=== PATIENT | female | born 1930 | race Caucasian/White ===

== ENCOUNTER 2018-11-06 15:59 | Inpatient (IN) | payer MEDICARE, BC ==
[~2018-11-06] VITALS: Ht 165.1 cm; Wt 44.5 kg
--- NOTE | 2018-11-06 16:17 | NUR ---
PT JANESSA AVILA [facility], SENT BY PMD FOR WEAKNESS AND N/V, PT IS AAOX3, NOT IN RESPIRATORY DISTRESS, HOOKED TO MONITOR, VS STABLE, KEPT RESTED AND COMFORTABLE, WILL CONTINUE TO MONITOR. AWAITING ER MD FOR EVAL.
--- NOTE | 2018-11-06 16:30 | NUR ---
IV LINE ESTABLISHED, LABS DRAWNED AND SENT TO LAB.
--- NOTE | 2018-11-06 16:45 | NUR ---
SEEN AND EXAMINED BY DR. RODRIGUEZ.
[2018-11-06] MEDS ORDERED: BISA10SU61 RC (16:46)
[2018-11-06] MEDS ORDERED: MAGN400O6 GT (16:46)
[2018-11-06] MEDS ORDERED: ASPI-605 PO (16:46)
[2018-11-06] MEDS ORDERED: ATOR20TA PO (16:46)
[2018-11-06] MEDS ORDERED: ALEN70TA6 PO (16:46)
[2018-11-06] MEDS ORDERED: MELA1TAB23 PO (16:46)
[2018-11-06] MEDS ORDERED: TYL2T PO (16:46)
[2018-11-06] MEDS ORDERED: POTA20TA83 PO (16:46)
[2018-11-06] MEDS ORDERED: DIPH-530 PO (16:46)
[2018-11-06] MEDS ORDERED: METO25TA6 PO (16:46)
[2018-11-06] MEDS ORDERED: IPRA3AMP23 IH (16:46)
[2018-11-06] MEDS ORDERED: NA P133E RC (16:46)
[2018-11-06] MEDS ORDERED: VANC125C11 PO (16:46)
[2018-11-06] MEDS ORDERED: RIVA10TA PO (16:46)
[2018-11-06 18:04] LABS: BASOPHILS % (AUTO) 0.2 % (0.0-2.0); EOSINOPHILS % (AUTO) 0.5 % (0.0-6.0); HEMATOCRIT 39 % (33-45); LYMPHOCYTES # (AUTO) 1.2 /CMM (0.8-4.8); LYMPHOCYTES % (AUTO) 15.1 % (20.0-44.0); MEAN CORPUSCULAR HGB CONC 33 g/dl (31.0-36.0); MEAN CORPUSCULAR VOLUME 94 fL (82-100); MONOCYTES # (AUTO) 0.4 /CMM (0.1-1.30); NEUTROPHILS # (AUTO) 6.4 /CMM (1.8-8.9); NEUTROPHILS % (AUTO) 79.2 % (43.0-81.0); PLATELET COUNT (AUTO) 253 /CMM (150-450); RED BLOOD CELL COUNT(AUTO) 4.15 MIL/uL (4.0-5.2); WHITE BLOOD COUNT (AUTO) 8.1 K/uL (4.3-11.0)
--- NOTE | 2018-11-06 18:13 | NUR ---
PT IS WHEELED TO CT SCAN VIA [facility].
[2018-11-06 18:17] LABS: CALCIUM, SERUM 8.4 mg/dL (8.5-10.1); CARBON DIOXIDE 15 mmol/L (21-32); CHLORIDE 104 mmol/L (98-107); CREATININE 0.6 mg/dL (0.6-1.3); GLUCOSE 62 mg/dL (74-106); POTASSIUM 3.1 mmol/L (3.5-5.1); SODIUM SERUM 140 mmol/L (136-145); UREA NITROGEN, BLOOD 7 mg/dL (7-18)
[2018-11-06 18:29] LABS: ALANINE AMINOTRANSFERASE 39 U/L (12-78); ALBUMIN 2.8 g/dL (3.4-5.0); ALKALINE PHOSPHATASE 57 U/L (46-116); ASPARTATE AMINOTRANSFERASE 48 U/L (15-37); BILIRUBIN,DIRECT 0.1 mg/dL (0.0-0.2); BILIRUBIN,TOTAL 0.9 mg/dL (0.2-1.0); LIPASE 213 U/L (73-393); TOTAL PROTEIN, SERUM 6.7 g/dL (6.4-8.2)
--- NOTE | 2018-11-06 18:47 | NUR ---
URINE SPECIMEN COLLECTED AND SENT TO LAB.
--- NOTE | 2018-11-06 19:08 | NUR ---
CALLED RT FOR ABG
[2018-11-06 19:09] LABS: APPEARANCE,URINE Clear (CLEAR); BILIRUBIN,URINE SMALL (NEGATIVE); BLOOD, URINE Moderate Ery/uL (NEGATIVE); COLOR,URINE Yellow (YELLOW); KETONES,URINE >=160 (NEGATIVE); LEUKOCYTE ESTERASE ,URINE Moderate (NEGATIVE); NITRITE, URINE Negative (NEGATIVE); PROTEIN,URINE 100 mg/dl (NEGATIVE); UGLUCOSE Negative (NEGATIVE); UROBILINOGEN,URINE 0.2 EU/dL (0.2)
[2018-11-06 19:22] LABS: BACTERIA,URINE 2+ /HPF (None Seen); SQUAMOUS EPITHELIAL CELL,UR Few /HPF (None Seen)
--- NOTE | 2018-11-06 19:27 | NUR ---
REPORT GIVEN TO PERRY KITCHEN FOR PAT.
[2018-11-06 19:35] LABS: ABG BASE EXCESS -10.1 mmol/L; ABG OXYGEN SATURATION 94.5 % (92.0-98.5); ABG PCO2 20.5 mmHg (35.0-45.0); ABG PO2 74.5 mmHg (75.0-100.0); AaDO2 50.7 mmHg; COHb 0.6 % (0.5-1.5); MetHb 0.6 % (0.0-1.5); O2Hb 93.4 % (94.0-97.0); SITE, ABG Right Radial; VENT MODE, BG ROOM AIR
[2018-11-06] MEDS ORDERED: PIPERACILLIN /TAZOBACTAM 3.375 G in IV D5W 50 ML IV ONE (20:00)
[2018-11-06] MEDS ORDERED: IV NS 0.9% 1,000 ML BAG IV ONE (20:00)
[2018-11-06] MEDS: POTASSIUM CL. PREMIX PERIPHER. 50 ML IV SCH ×3 (20:00→23:24)
[2018-11-06] MEDS ORDERED: POTASSIUM CL. PREMIX PERIPHER. 50 ML ONE (20:55)
--- NOTE | 2018-11-06 21:15 | NUR ---
REPORT GIVEN TO SERGO AMADOR FOR PAT
[2018-11-06 21:30] VITALS: BP 150/82
--- NOTE | 2018-11-06 21:30 | NUR ---
ADMISSION NOTES: RECEIVED REPORT FROM PATRICK AMADOR. PT BROUGHT TO THE UNIT VIA GURNEY. [facility] C/O N/V GENERALIZED WEAKNESS, BEING ADMITTED TO TELEMETRY FOR SBO. PT A/O X3, FORGETFUL AT TIMES. IV ACCESS ON LEFT AC G18 CURRENTLY WITH ONGOING KCL REPLACEMENT 1ST BAG, ORDER TO GIVE 3BAGS. ORIENTED PT TO UNIT POLICY, HOURLY ROUNDING , USE OF CALL LIGHT SYSTEM. INVENTORY OF BELONGING COMPLETED BY DAIRY BACTERIOLOGIST IMM[place]. SKIN ASSESSMENT PERFORMED. VS TAKEN AND RECORDED. BLE OFFLOADED. TELEMONITORING CURRENTLY AFIB HR 82. SAFETY PRECAUTIONS FOR FALL INITIATED, CALL LIGHT IN REACH, WILL CONTINUE MONITORING PT.
[2018-11-06 22:00] VITALS: BP 150/82
--- NOTE | 2018-11-06 22:00 | NUR ---
RN NOTES: PLACED ON ISOLATION + CDIFF FROM SNF. WILL COLLECT STOOL FOR CDIFF.
[2018-11-06] MEDS ORDERED: POTASSIUM CL. PREMIX PERIPHER. 100 ML ONE (22:06)
[2018-11-06] MEDS ORDERED: PIPERACILLIN /TAZOBACTAM 3.375 G VIAL IV ONE (22:06)
--- NOTE | 2018-11-06 22:27 | NUR ---
2nd bag: medication just received from er, potassium chloride iv replaxcement
--- NOTE | 2018-11-06 22:30 | NUR ---
RN NOTES: PER FOOD SERVICE HOTEL RUNNER, PT NOW AFLUTTER HR 80. MD CURRENTLY IN THE UNIT, RELAYED RHYTHM, NO NEW ORDERS RECEIVED, PT AWAKE, BEING INTERVIEWED BY MD AT BED SIDE, DENIES ANY PAIN OR DISCOMFORT,WILL CONTINUE MONITORING PT.
--- NOTE | 2018-11-06 22:35 | NUR ---
RN NOTES: MADE AWARE OF PT'S HOME MED LIST IN THE COMPUTER ALREADY, READY FOR REVIEW, INFORMED PT ON VANCOMYCIN FOR CDIFF IN SNF
[2018-11-06] MEDS ORDERED: Z GUARD REMEDY 2 OZ OINT TP PRN (23:00)
[2018-11-06] MEDS ORDERED: MAG HYDROX/AL HYDROX/SIMETH 30 ML UDC PO PRN (23:00)
[2018-11-06] MEDS ORDERED: MAGNESIUM HYDROXIDE 30 ML UDC PO PRN (23:00)
[2018-11-06] MEDS ORDERED: ACETAMINOPHEN 325 MG TABLET PO PRN (23:00)
[2018-11-06] MEDS ORDERED: ONDANSETRON HCL/PF 4 MG/2 ML VIAL IVP PRN (23:00)
[2018-11-06] MEDS ORDERED: ZOLPIDEM TARTRATE 5 MG TABLET PO PRN (23:00)
[2018-11-06] MEDS ORDERED: HYDROCODONE/APAP 5/325MG 1 EACH TABLET PO PRN (23:00)
[2018-11-06] MEDS: IV D5/0.45 NACL 1,000 ML IV PRN (23:17)
--- NOTE | 2018-11-06 23:24 | NUR ---
3rd bag kcl replacement: 2nd bag kcl just finished, will now adminsiter the 3rd and last bag for kcl replacement 50ml/hr.
--- NOTE | 2018-11-06 23:52 | NUR ---
rn notes; per geodetic surveyor technologist, pt now converted to sinus rhythm hr 66
[2018-11-07] MEDS ORDERED: ZOSYN IVPB 3.375 G in IV D5W 50ml IV ONE (01:00)
--- NOTE | 2018-11-07 02:17 | NUR ---
RN NOTES: CURRENTLY SINUS RHYTHM WITH PAC HR 69
--- NOTE | 2018-11-07 03:26 | NUR ---
RN NOTES: PER MD TO CHANGE DIET TO NPO X MEDS AND RESUME PO VANCOMYCIN FOR MANAGEMENT OF CDIFF
--- NOTE | 2018-11-07 03:29 | NUR ---
RN NOTES: T/O FROM MD RESUME VANCOMYCIN 125MG PO CAP Q6HRS FOR CDIFF MANAGEMENT. ORDER READ BACK AND CARRIED OUT.
--- NOTE | 2018-11-07 03:32 | NUR ---
RN NOTES: NOTIFIED MD NO VANCOMYCIN CAPSULE AVAILABLE, ONLY ORAL SUSPENSION OR IV, PER MD ORDER FOR VANCOMYCIN 125MG PO ORAL SUSPENSION Q6HRS RECEIVED T/O, FOR CDIFF MANAGEMENT. ORDER READ BACK, NOTED, CARRIED OUT.
[2018-11-07 04:00] VITALS: BP 130/76
--- NOTE | 2018-11-07 04:31 | NUR ---
RN NOTES: PER INFORMATION TECHNOLOGY ASSISTANT PT BACK O A FLUTTER HR 66, PT AWAKE, A/O X2 ON RA DENIES ANY CHEST PAIN, SOB OR DIZZINESS.
--- NOTE | 2018-11-07 05:28 | NUR ---
RN NOTES: PER ELECTRONIC INSTRUMENT TRADES WORKER, PT BACK ON AFIB HR 82
--- NOTE | 2018-11-07 06:16 | NUR ---
notes regarding vancomycin po: no available vancomycin po to [facility], contacted rn sup spoked to sandi informed about order for vancomycin oral suspension 125mg, per rn sup there's no vanco oral suspension in night locker, only inside the in house pharmacy, cattle dehorner made aware, will wait for pharmacy to open in order to give the vancomycin po, will endorse to day rn to please administer the medication once its available. inhouse pharmacy will open at 0700am.
--- NOTE | 2018-11-07 06:40 | NUR ---
RN NOTES: BROUGHT STOOL SPECIMEN TO LAB, ORDER STOOL FOR CDIFF AND CULTURE. SPOKED WITH DAISHA FROM LAB, PER DAISHA, STOOL NOT ENOUGH TO QUALIFY FOR CULTURE, MUST BEHALF THE CONTAINER, AND STOOL MUST BE LIQUID FOR CDIFF TO BE PROCESS.
--- NOTE | 2018-11-07 06:45 | NUR ---
RN CLOSING NOTES: PT REMAINS A/O X2, ON RA RESPIRATION EVEN AND UNLABORED. REMAINS AFIB HR 72. IV ACCESS REMAINS PATENT AND FLUSHING WELL, INFUSING WITH IVF ORDERED. REMAINS ON CDIFF ISOLATION, PPE UTILIZED. BLE OFFLOADED. NEEDS ATTENDED. VS REMAINS STABLE. SAFETY PRECAUTIONS FOR FALL REMAINS ENGAGED, CALL LIGHT IN REACH, WILL ENDORSE TO DAY RN FOR CONTINUITY OF CARE.
[2018-11-07 06:47] LABS: BASOPHILS % (AUTO) 0.3 % (0.0-2.0); EOSINOPHILS % (AUTO) 1.9 % (0.0-6.0); HEMATOCRIT 37 % (33-45); HEMOGLOBIN 12.1 g/dL (11.5-14.8); LYMPHOCYTES # (AUTO) 1.3 /CMM (0.8-4.8); LYMPHOCYTES % (AUTO) 20.1 % (20.0-44.0); MEAN CORPUSCULAR HGB CONC 33 g/dl (31.0-36.0); MEAN CORPUSCULAR VOLUME 93 fL (82-100); MONOCYTES # (AUTO) 0.7 /CMM (0.1-1.30); MONOCYTES % (AUTO) 11.2 % (2.0-12.0); NEUTROPHILS # (AUTO) 4.2 /CMM (1.8-8.9); NEUTROPHILS % (AUTO) 66.5 % (43.0-81.0); PLATELET COUNT (AUTO) 236 /CMM (150-450); RED BLOOD CELL COUNT(AUTO) 3.93 MIL/uL (4.0-5.2); WHITE BLOOD COUNT (AUTO) 6.4 K/uL (4.3-11.0)
[2018-11-07 07:06] LABS: CALCIUM, SERUM 7.7 mg/dL (8.5-10.1); CARBON DIOXIDE 15 mmol/L (21-32); CHLORIDE 106 mmol/L (98-107); CREATININE 0.6 mg/dL (0.6-1.3); GLUCOSE 113 mg/dL (74-106); MAGNESIUM 1.4 mg/dL (1.8-2.4); PHOSPHORUS 2.1 mg/dL (2.5-4.9); POTASSIUM 3.2 mmol/L (3.5-5.1); SODIUM SERUM 139 mmol/L (136-145); UREA NITROGEN, BLOOD 5 mg/dL (7-18)
--- NOTE | 2018-11-07 07:30 | NUR ---
CIGAR WRAPPER TENDER AUTOMATIC NOTES PT IN BED, AWAKE, ALERT AND ORIENTED, NO COMPLAINT OF PAIN OR ANY DISCOMFORT, RESPIRATIONS NORMAL, PLAN OF CARE DISCUSSED WITH PT, VERBALIZED UNDERSTANDING, CALL LIGHT WITHIN REACH, IV FLUIDS INFUSING WELL, KEPT WARM AND COMFORTABLE.
[2018-11-07 08:00] VITALS: BP 133/53
[2018-11-07] MEDS: PANTOPRAZOLE 40 MG TABLET.DR PO SCH (08:02)
[2018-11-07] MEDS: PIPERACILLIN /TAZOBACTAM 3.375 G in IV D5W 100 ML IV SCH ×3 (09:06→23:28)
[2018-11-07] MEDS: POTASSIUM CHLORIDE 20 MEQ TAB.PRT.SR PO SCH ×2 (11:01→12:24)
[2018-11-07] MEDS: VANCOMYCIN HCL 125 MG/2.5 ML ORAL.SUSP PO SCH ×3 (11:01→23:17)
[2018-11-07] MEDS: Magnesium 1GM/D5W 100ML PREMIX 100 ML IV SCH ×4 (11:03→14:42)
[2018-11-07 12:00] VITALS: BP 128/60
[2018-11-07] MEDS ORDERED: K PHOS NEUTRAL 250 MG TABLET PO ONE (12:00)
--- NOTE | 2018-11-07 12:00 | NUR ---
HOP FARMER NOTES PER GILDARDO WAHL TO START ON CLEAR LIQUID DIET, ADVANCE DIET TOLERATED, PT INFORMED.
--- NOTE | 2018-11-07 13:40 | NUR ---
ENGINEER CONDUCTOR NOTES PT IN BED, AWAKE, ALERT, NO COMPLAINT OF PAIN, NOT IN DISTRESS, TOLERATING CLEAR LIQUID DIET, SEEN AND EXAMINED BY LEIDY REAL ESTATE REP, PLAN OF CARE DISCUSSED WITH PT, VERBALIZED UNDERSTANDING.
[2018-11-07 16:00] VITALS: BP 143/63
--- NOTE | 2018-11-07 19:00 | NUR ---
RN MS NOTES PT IN BED, AWAKE, ALERT AND ORIENTED, DENIES PAIN, NOT IN DISTRESS, CALL LIGHT WITHIN REACH, IV FLUIDS INFUSING WELL, TOLERATING CURRENT DIET WELL, PM MEDS GIVEN ORDERED, ALL NEEDS ATTENDED.
--- NOTE | 2018-11-07 19:58 | NUR ---
RN NOTES RECEIVED PATIENT AWAKE , RESTING COMFORTABLY, SAFETY MEASURES IN PLACE, ASPIRATION PRECAUTION EMPHASIZE, REPOSITIONED FOR COMFORT, NO APPARENT SIGNS OF ACUTE DISTRESS NOTED AT THIS TIME, CALL LIGHT WITHIN EASY REACH, ISOLATION PRECAUTION MAINTAINED, WILL MONITOR ACCORDINGLY.
[2018-11-07 20:25] VITALS: BP 137/71
[2018-11-08] MEDS: VANCOMYCIN HCL 125 MG/2.5 ML ORAL.SUSP PO SCH ×3 (05:57→17:45)
--- NOTE | 2018-11-08 07:25 | NUR ---
RN NOTES ALL NEEDS ATTENDED AND MET, KEPT CLEAN DRY AND COMFORTABLE, REPOSITIONED FOR COMFORT, DENIES ANY PAIN, ISOLATION PRECAUTION OBSERVED, SAFETY MEASURES IN PLACE, ASPIRATION PRECAUTION EMPHASIZE, ENDORSED TO AM NURSE FOR CONTINUITY OF CARE.
--- NOTE | 2018-11-08 07:30 | NUR ---
RN MS NOTES PT IN BED, AWAKE, ALERT AND ORIENTED, NO COMPLAINT OF PAIN OR ANY DISCOMFORT, RESPIRATIONS NORMAL, CALL LIGHT WITHIN REACH, KEPT COMFORTABLE IN BED, IV FLUIDS INFUSING WELL.
[2018-11-08 07:38] LABS: CALCIUM, SERUM 7.8 mg/dL (8.5-10.1); CARBON DIOXIDE 23 mmol/L (21-32); CHLORIDE 108 mmol/L (98-107); CREATININE 0.4 mg/dL (0.6-1.3); GLUCOSE 92 mg/dL (74-106); MAGNESIUM 2.1 mg/dL (1.8-2.4); POTASSIUM 3.1 mmol/L (3.5-5.1); SODIUM SERUM 140 mmol/L (136-145); UREA NITROGEN, BLOOD 1 mg/dL (7-18)
[2018-11-08 08:00] VITALS: BP 129/70
[2018-11-08] MEDS: IV D5/0.45 NACL 1,000 ML IV PRN (08:24)
[2018-11-08] MEDS: PIPERACILLIN /TAZOBACTAM 3.375 G in IV D5W 100 ML IV SCH ×2 (08:24→16:48)
[2018-11-08] MEDS: PANTOPRAZOLE 40 MG TABLET.DR PO SCH (08:24)
[2018-11-08] MEDS: POTASSIUM CHLORIDE 20 MEQ TAB.PRT.SR PO SCH ×2 (11:54→13:00)
[2018-11-08] MEDS ORDERED: POTASSIUM CHLORIDE 20 MEQ TAB.PRT.SR PO ONE (14:30)
[2018-11-08 16:00] VITALS: BP 117/64
--- NOTE | 2018-11-08 19:00 | NUR ---
RN MS NOTES PT IN BED, AWAKE, ALERT AND ORIENTED, NO COMPLAINT OF PAIN, NOT IN DISTRESS, IV FLUIDS INFUSING WELL, CALL LIGHT WITHIN REACH, TOLERATING CURRENT DIET, PM CARE PROVIDED, PM MEDS GIVEN, ALL NEEDS ATTENDED.
--- NOTE | 2018-11-08 19:52 | NUR ---
MS GEORGIE INITIAL NOTES PT SEEN IN BED SITTING STILL EATING HER DINNER , NO ASPIRATION NOTED. PT STATED IT'S GOOD , NOTICED SHE ALMOST FINISHED HER DINNER FOOD. NO SIGNS OF ANY DISTRESS OR ANY N/V NOTED. RE-ORIENTED WHERE SHE AT AND HOW TO USED THE CALL LIGHT SYSTEM. PT STATED "OK". KEPT HER WARM AND COMFORTABLE AT ALL TIMES. IVF STILL INFUSING. PLACE CALL LIGHT AT REACH. BED ALARM FOR PT. SAFETY. BED IN LOW AND LOCK IN POSITION WITH SIDE RAILS X2 UP. WILL CONTINUE MONITORING.
[2018-11-08 20:00] VITALS: BP 139/69
[2018-11-08] MEDS ORDERED: Z GUARD REMEDY 2 OZ OINT TP PRN (23:00)
[2018-11-09] MEDS: VANCOMYCIN HCL 125 MG/2.5 ML ORAL.SUSP PO SCH ×3 (00:08→11:32)
[2018-11-09] MEDS: PIPERACILLIN /TAZOBACTAM 3.375 G in IV D5W 100 ML IV SCH ×2 (00:40→08:11)
--- NOTE | 2018-11-09 00:41 | NUR ---
COVERING PRIMARY NURSE YOHANNES Zosyn IV administered, indication and possible effect.
--- NOTE | 2018-11-09 02:46 | NUR ---
ms convertible top installer notes pt resting comfortably in bed without any acute distress noted. breathing even and non-labored, due meds given and IVF still infusing. kept her warm and comfortable at all times. place call light at reach. will continue monitoring.
[2018-11-09] MEDS: PANTOPRAZOLE 40 MG TABLET.DR PO SCH (06:49)
[2018-11-09] MEDS: IV D5/0.45 NACL 1,000 ML IV PRN (06:50)
--- NOTE | 2018-11-09 07:12 | NUR ---
ms batch plant supervisor closing notes pt remains sleeping after sponge bath rendered as well skin tx. stable rigoberto the night . no signs of any distress noted. all due meds given and all needs met. IVF still infusing. kept her warm and comfortable at all times. bed in low and lock in position with side rails 2 up. bed alarm set for safety. will endorse to am nurse for continuity of care. place call light at reach.
[2018-11-09 08:00] VITALS: BP 127/74
--- NOTE | 2018-11-09 08:00 | NUR ---
RN MS OPENING NOTES Received patient on room air, no sob noted. Patient denies pain at this time, patient comfortably lying down on bed. IVF infusing and has no obstruction, bed at the lowest setting, call light within reach.
[2018-11-09 08:38] LABS: CALCIUM, SERUM 7.6 mg/dL (8.5-10.1); CARBON DIOXIDE 26 mmol/L (21-32); CHLORIDE 106 mmol/L (98-107); CREATININE 0.4 mg/dL (0.6-1.3); GLUCOSE 115 mg/dL (74-106); POTASSIUM 2.9 mmol/L (3.5-5.1); SODIUM SERUM 140 mmol/L (136-145); UREA NITROGEN, BLOOD 1 mg/dL (7-18)
[2018-11-09] MEDS: POTASSIUM CHLORIDE 20 MEQ TAB.PRT.SR PO SCH ×3 (12:40→14:32)
--- NOTE | 2018-11-09 14:50 | NUR ---
RN MS CLOSING NOTES Patient discharged at this time, no sob noted. Vital signs stable. Patient has all her valuables with her belonging. All paperwork signed and explained to patient without any further question or concerns. Patient's wound photo was taken and placed on the chart. A/O X4 when patient left. A very pleasant patient to work and care for.
== END 2018-11-09 14:50 | DRG 388 ==
LOC: ER 16:09 → TELE 20:12 → MED 11-07 17:12
PROVIDERS: ADMIT Student in an Organized Health Care Education/Training Program; ATTEND Nurse Practitioner Acute Care
DX: K56.609 Unspecified intestinal obstruction, unspecified as to partial versus complete obstruction (principal); E43 Unspecified severe protein-calorie malnutrition; N39.0 Urinary tract infection, site not specified; D68.59 Other primary thrombophilia; J90 Pleural effusion, not elsewhere classified; M48.54XA Collapsed vertebra, not elsewhere classified, thoracic region, initial encounter for fracture; R18.8 Other ascites; R64 Cachexia; E87.6 Hypokalemia; F02.80 Dementia in other diseases classified elsewhere, unspecified severity, without behavioral disturbance, psychotic disturbance, mood disturbance, and anxiety; G30.9 Alzheimer's disease, unspecified; K80.20 Calculus of gallbladder without cholecystitis without obstruction; I71.4 Abdominal aortic aneurysm, without rupture; E83.39 Other disorders of phosphorus metabolism; E83.42 Hypomagnesemia; I10 Essential (primary) hypertension; I25.10 Atherosclerotic heart disease of native coronary artery without angina pectoris; M19.90 Unspecified osteoarthritis, unspecified site; M81.0 Age-related osteoporosis without current pathological fracture; Z79.82 Long term (current) use of aspirin; E88.09 Other disorders of plasma-protein metabolism, not elsewhere classified; N20.0 Calculus of kidney; K59.00 Constipation, unspecified; B96.20 Unspecified Escherichia coli [E. coli] as the cause of diseases classified elsewhere; M62.84 Sarcopenia; K57.30 Diverticulosis of large intestine without perforation or abscess without bleeding
CPT/HCPCS: 36415; 36600; 80048-TC; 80076-TC; 81000-TC; 82803-TC; 83605-TC; 83690-TC; 83735-TC; 84100-TC; 85025-TC; 87040-TC; 87081-TC; 87086-TC; 87186-TC; 97110-TC; 97112-TC; 97116-TC; 97530-TC; G0378; J2543; J3475; J3480; J3490; J7030; J7060

== ENCOUNTER 2019-05-31 18:47 | Emergency (ER) | payer MEDICARE, BC ==
[~2019-05-31] VITALS: Ht 160 cm; Wt 51.7 kg
[~2019-05-31 18:47] MED LIST: ALEN70TA6 PO; ASPI-605 PO; ATOR20TA PO; BISA10SU61 RC; DIPH-530 PO; IPRA3AMP23 IH; MAGN400O6 GT; MELA1TAB23 PO; METO25TA6 PO; NA P133E RC; POTA20TA83 PO; RIVA10TA PO; TYL2T PO; VANC125C11 PO
--- NOTE | 2019-05-31 19:31 | NUR ---
KAY FROM [facility] FOR NO APPETITE, ABD DISTENTION +NAUSEA, pt awake, alert, -sob, nad noted, vss, pending md cárdenas
[2019-05-31 20:15] LABS: BASOPHILS % (AUTO) 0.2 % (0.0-2.0); EOSINOPHILS % (AUTO) 0.2 % (0.0-6.0); HEMATOCRIT 39 % (33-45); LYMPHOCYTES # (AUTO) 0.5 /CMM (0.8-4.8); LYMPHOCYTES % (AUTO) 5.5 % (20.0-44.0); MEAN CORPUSCULAR HGB CONC 33 g/dl (31.0-36.0); MEAN CORPUSCULAR VOLUME 96 fL (82-100); MONOCYTES # (AUTO) 0.7 /CMM (0.1-1.30); NEUTROPHILS # (AUTO) 7.3 /CMM (1.8-8.9); NEUTROPHILS % (AUTO) 86.1 % (43.0-81.0); PLATELET COUNT (AUTO) 214 /CMM (150-450); RED BLOOD CELL COUNT(AUTO) 4.12 MIL/uL (4.0-5.2); WHITE BLOOD COUNT (AUTO) 8.4 K/uL (4.3-11.0)
[2019-05-31 20:37] LABS: CARBON DIOXIDE 22 mmol/L (21-32); CHLORIDE 95 mmol/L (98-107); CREATININE 0.6 mg/dL (0.6-1.3); GLUCOSE 138 mg/dL (74-106); POTASSIUM 4.3 mmol/L (3.5-5.1); SODIUM SERUM 130 mmol/L (136-145); UREA NITROGEN, BLOOD 14 mg/dL (7-18)
[2019-05-31 20:43] LABS: ALANINE AMINOTRANSFERASE 24 U/L (12-78); ALBUMIN 2.8 g/dL (3.4-5.0); ALKALINE PHOSPHATASE 58 U/L (46-116); ASPARTATE AMINOTRANSFERASE 26 U/L (15-37); BILIRUBIN,DIRECT 0.2 mg/dL (0.0-0.2); BILIRUBIN,TOTAL 0.9 mg/dL (0.2-1.0); LIPASE 59 U/L (73-393); TOTAL PROTEIN, SERUM 7.5 g/dL (6.4-8.2)
[2019-05-31 21:08] LABS: APPEARANCE,URINE Cloudy (CLEAR); BILIRUBIN,URINE Negative (NEGATIVE); BLOOD, URINE Large Ery/uL (NEGATIVE); COLOR,URINE Dark (YELLOW); KETONES,URINE 80 (NEGATIVE); LEUKOCYTE ESTERASE ,URINE Trace (NEGATIVE); NITRITE, URINE Positive (NEGATIVE); PH,URINE 5.5 (5.0-8.0); PROTEIN,URINE 30 mg/dl (NEGATIVE); UGLUCOSE Negative (NEGATIVE)
[2019-05-31 21:23] LABS: BACTERIA,URINE Many /HPF (None Seen); SQUAMOUS EPITHELIAL CELL,UR Few /HPF (None Seen)
--- NOTE | 2019-05-31 21:47 | NUR ---
[facility] WITH [facility]. ETA AFTER MDNIGHT PER BLAKE
--- NOTE | 2019-05-31 22:02 | NUR ---
ARRANGED S TRANSPORT WITH [id number]. TRIP [id number]. [facility] CANCELLED
--- NOTE | 2019-05-31 23:19 | NUR ---
spoke to joselo staff at [facility] aware of pt's discharge and new med orders
[2019-05-31 23:40] VITALS: BP 139/75
--- NOTE | 2019-05-31 23:40 | NUR ---
pt left via private ambulance, -sob, nad noted, vss, report given to staff
== END 2019-05-31 23:41 | disposition home or self-care (01) ==
LOC: ER 18:50
DX: K59.00 Constipation, unspecified (principal); N39.0 Urinary tract infection, site not specified; G30.9 Alzheimer's disease, unspecified; F02.80 Dementia in other diseases classified elsewhere, unspecified severity, without behavioral disturbance, psychotic disturbance, mood disturbance, and anxiety; I10 Essential (primary) hypertension; M81.0 Age-related osteoporosis without current pathological fracture; Z79.899 Other long term (current) drug therapy; Z79.82 Long term (current) use of aspirin
CPT/HCPCS: 36415; 80048-TC; 80076-TC; 81000-TC; 83690-TC; 84484-TC; 85025-TC; 87086-TC; 87186-TC